=== PATIENT | male | born 1955 | race Caucasian/White ===

== ENCOUNTER → 2021-11-18 | Outpatient (CLI) | payer MEDICARE, OTHER ==
[2014-10-26 09:00] VITALS: BP 117/76
[~2021-11-18] MED LIST: BIMA2.5D OP; BRIM5DRO3 OP; LISI1TAB39 PO; SIMV20TA18 PO
--- NOTE | 2021-11-18 11:49 | KCIC ---
US ABDOMEN COMPLETE History: ELEVATED AST (SGOT) Comparison: None. Technique: Sonographic examination of the abdomen. Findings: Pancreas: Visualized portions are unremarkable. Liver: The liver measures 18.2 cm. Liver echotexture is normal. No focal hepatic lesions. Hepatopet al flow in the portal vein. Gallbladder: No gallstones, wall thickening or pericholecystic fluid. Bile ducts: The common duct measures 4 mm. Right kidney: 12.6 cm length. No focal lesion, calculi or hydronephrosis. Left kidney: 12.6 cm length. No focal lesion, calculi or hydronephrosis. Spleen: 10.6 cm length. No focal lesion. Aorta/IVC: Visualized portions are unremarkable. Other: No ascites. Impression: 1. Normal abdomen ultrasound. Normal hepatic echotexture. No cholelithiasis or acute cholecystitis. Electronically signed by: Shahzad Cornelius MD (11/18/2021 11:47 AM) [id number]
== END ==
LOC: KCIC US 07:55
PROVIDERS: ATTEND Family Medicine
DX: R74.01 Elevation of levels of liver transaminase levels (principal)
CPT/HCPCS: 76700